=== PATIENT | male | born 1980 | race Two or more races ===

== ENCOUNTER 2025-01-02 18:12 | Emergency (ER) | payer OTHER ==
[~2025-01-02] VITALS: Ht 172.7 cm; Wt 118.2 kg
[2025-01-02 19:00] VITALS: TEMP 98.1
[2025-01-02 19:06] LABS: PLATELET COUNT (AUTO) 244 K/uL (150-450); RED BLOOD CELL COUNT(AUTO) 5.05 MIL/uL (4.50-5.90); RED CELL DISTRIBUTION WIDTH 13.3 % (11.5-14.5); WHITE BLOOD COUNT (AUTO) 6.7 K/uL (4.5-11.0)
[2025-01-02 19:10] LABS: CALCIUM, TOTAL 8.3 mg/dL (8.8-10.5); CREATININE 1.13 mg/dL (0.60-1.30); GLOMERULAR FILTR. RATE CALC > 60 mL/min (>60); GLUCOSE,RANDOM 117 mg/dL (70-110); SODIUM SERUM 139 mmol/L (136-145); UREA NITROGEN, BLOOD 11 mg/dL (7-18)
[2025-01-02 19:18] LABS: TROPONIN I-HIGH SENSITIVITY 5 ng/L (<76)
[2025-01-02 22:51] VITALS: BP 122/80; PULSE 71; RESP 18; O2SAT 100
== END 2025-01-02 22:53 | disposition home or self-care (01) ==
LOC: EMS 18:12
DX: R06.02 Shortness of breath (principal); R00.2 Palpitations; I10 Essential (primary) hypertension
CPT/HCPCS: 71045; 80048; 83735; 83880; 84484; 85025; 85379; 93005; 99285; 36415-L1; 36415-TC